=== PATIENT | female | born 1965 | race Caucasian/White ===

== ENCOUNTER 2022-05-16 12:26 | Outpatient (CLI) | payer OTHER, SELFPAY ==
--- OUTSIDE RECORDS SUMMARY | 2022-05-16 09:35 | XMS_ITS | Clinical Summary ---
:1965 Author Organization [facility] [place] [address] Care Team Providers Name Role Phone Eric Cruz MD Primary Care Provider [phone] Allergies No known active allergies Medications Medication Sig Dispensed Refills Start Date End Date Status phentermine (ADIPEX-P) Take 1 tablet by 30 tablet 2 05/26/2016 Active 37.5 mg mouth once daily tabletIndications: before a meal. Obesity, unspecified Active Problems Problem Noted Date Unspecified sleep apnea 11/13/2009 Routine health maintenance 11/13/2009 Overview: Last cpx-10/10 Last pap smear-10/10 Last breast exam-10/10 Last lipid-10/11,LDL-80 Immunizations Name Administration Dates Next Due Td (Age >=7 Years) 10/05/2007, 12/03/1998 Tdap 07/13/2015 Family History Medical History Relation Name Comments Diabetes Father Relation Name Status Comments Father Social History Tobacco Use Types Packs/Day Years Used Date Smoking Tobacco: Never Smokeless Tobacco: Never Tobacco Cessation: Counseling Given: Yes Alcohol Use Standard Drinks/Week Comments Yes 0 (1 standard drink = 0.6 oz pure alcoho l) occ. Sex Assigned at Date Recorded Not on file Obstetrics History Last Filed Vital Signs Vital Sign Reading Time Taken Comments Blood Pressure 124/76 05/26/2016 3:29 PM [facility] Pulse 68 07/13/2015 2:05 PM [facility] [employer] Temperature 36.7 ??C (98.1 ??F) 02/25/2015 8:33 AM CDT Respiratory Rate - - Oxygen Saturation - - Inhaled Oxygen Concentration - - Weight 83.9 kg (185 lb) 05/26/2016 3:29 PM [facility] [employer] Height 162.6 cm (5' 4) 07/13/2015 2:05 PM [employer] [employer] Body Mass Index 31.76 07/13/2015 2:05 PM [employer] [employer] Plan of Treatment Health Maintenance Due Date Last Done Comments COVID-19 vaccine series (#1) 1965 Depression screening for age 12+ 1975 HIV for age 15-65 1978 Hepatitis C screening for age 18-79 1981 Zoster (shingles) series for age 1105/01/2013 50+ (1 of 2) Pap test for age 21-65 03/27/2015 03/27/2012, 10/05/2007 (Completed outside of [facility]) Fecal testing non-DNA 04/09/2016 04/09/2015 (FIT,FOBT,iFOBT) for age 45-75 Mammogram for age 45-75 06/11/2016 06/11/2015 BMI (ht and wt on same day) for age 0207/13/2016 07/13/2015 18+ Lipids for age 45-75 03/27/2017 03/27/2012, 10/09/2008 (Completed outside of [facility]) Influenza for age 50-64 02/03/2022 Tetanus booster 07/13/2025 07/13/2015, 10/05/2007, 12/03/1998 Tdap Completed 07/13/2015 Results Not on filefrom Last 3 Months Insurance Payer Benefit Plan / Subscriber ID Effective Dates Phone Addre ss Type Group [employer] [id number] 2013-Present [address] [address] [place] [address] Care Teams Nurse Supervisor Relationship Specialty Start Date End Date Eric Cruz MD PCP - General Family Practice 04/05/18 [id number] [place] [address]
[2022-05-16 13:51] LABS: Albumin* 4.3 g/dL (3.3-5.0); Chloride* 105 mmol/L (96-114)
[2022-05-16 13:52] LABS: Potassium* 4.3 mmol/L (3.6-5.1); Sodium* 141 mmol/L (135-149)
[2022-05-16 13:54] LABS: Alkaline Phosphatase* 85 U/L (40-150); Aspartate Amino Transferase* 31 U/L (12-35); Bilirubin Total* 0.9 mg/dL (0.1-1.5); Blood Urea Nitrogen* 18 mg/dL (7-30); Carbon Dioxide* 29 mmol/L (20-32); Cholesterol* 239 mg/dL (90-199); Creatinine* 0.8 mg/dL (0.5-1.5); Estimated Glomerular Filt Rate 85 ml/min
[2022-05-16 13:55] LABS: Alanine Aminotransferase* 23 U/L (4-35); Calcium* 9.4 mg/dL (8.4-10.6); Glucose* 94 mg/dL (60-115); HDL Cholesterol* 97 mg/dL (>=50); LDL Cholesterol Calculated 112 mg/dL (<100); Triglycerides* 151 mg/dL (40-149)
== END 2022-05-16 12:27 | disposition home or self-care (01) ==
PROVIDERS: PCP Physician Assistant Medical; Visit Provider Physician Assistant Medical
DX: Z00.00 Encounter for general adult medical examination without abnormal findings (principal); Z13.6 Encounter for screening for cardiovascular disorders
CPT/HCPCS: 80053; 80061